=== PATIENT | female | born 1980 | race Caucasian/White ===

== ENCOUNTER 2024-09-09 16:38 | Emergency (ER) | payer BC ==
[~2024-09-09] VITALS: Ht 167.6 cm; Wt 122.7 kg
[2024-09-09 16:40] VITALS: TEMP 98.2
[2024-09-09 17:13] LABS: BASOPHILS # (AUTO) 0.1 X10'3 (0-0.2); BASOPHILS % (AUTO) 0.7 % (0-1); EOSINOPHILS # (AUTO) 0.2 X10'3 (0-0.9); EOSINOPHILS % (AUTO) 2.1 % (0-6); HEMOGLOBIN 13.5 g/dl (12.0-16.0); LYMPHOCYTES # (AUTO) 2.1 X10'3 (1.1-4.8); LYMPHOCYTES % (AUTO) 23.4 % (21-51); MEAN CORPUSCULAR HEMOGLOBIN 32.4 PG (27.0-31.0); MEAN CORPUSCULAR HGB CONC 32.8 g/dL (33.0-36.5); MEAN CORPUSCULAR VOLUME 98.8 FL (78-98); MEAN PLATELET VOLUME 8.8 FL (7.4-10.4); MONOCYTES # (AUTO) 0.6 X10'3 (0-0.9); MONOCYTES % (AUTO) 6.9 % (2-12); NEUTROPHILS # (AUTO) 6.1 X10'3 (1.8-7.7); NEUTROPHILS % (AUTO) 66.9 % (42-75); PLATELET COUNT 251 X10'3 (140-440); RED BLOOD COUNT 4.15 X10'6 (4.20-5.60); RED CELL DISTRIBUTION WIDTH 13.9 % (11.5-14.5); WHITE BLOOD COUNT 9.1 X10'3 (4.5-11.0)
[2024-09-09 17:35] LABS: ALANINE AMINOTRANSFERASE 38 U/L (12-78); ALBUMIN 2.9 G/DL (3.4-5.0); ALBUMIN/GLOBULIN RATIO 0.9 (1.1-1.5); ALKALINE PHOSPHATASE 62 IU/L (46-116); ANION GAP 7 (8-16); ASPARTATE AMINO TRANSFERASE 18 U/L (10-37); BILIRUBIN,TOTAL 0.2 MG/DL (0.1-1.0); BLOOD UREA NITROGEN 8 MG/DL (7-18); BUN/CREATININE RATIO 11.4 (10.0-20.0); CALCIUM 7.8 MG/DL (8.5-10.1); CHLORIDE 106 MMOL/L (99-107); GLUCOSE 102 MG/DL (70-104); LIPASE 33 U/L (16-77); POTASSIUM 3.8 MMOL/L (3.5-5.1); SODIUM 139 MMOL/L (135-145); TOTAL CARBON DIOXIDE 26.4 MMOL/L (24-32); TOTAL PROTEIN 6.3 G/DL (6.4-8.2); eCRCL 95 ML/MIN; eGFR 90 ML/MIN
[2024-09-09 19:51] LABS: BILIRUBIN,URINE SMALL (Neg); CLARITY,URINE CLOUDY (Clear); COLOR,URINE YELLOW (Yellow); GLUCOSE, URINE NEGATIVE (Neg); KETONES,URINE TRACE mg/dl (Neg); LEUKOCYTE ESTERASE ,URINE NEGATIVE (Neg); NITRITES, URINE NEGATIVE (Neg); OCCULT BLOOD,URINE LARGE (Neg); PROTEIN,URINE 100 mg/dl (Neg); UROBILINOGEN,URINE 0.2 E.U/dL (0.2-1.0)
[2024-09-09 19:52] LABS: URINE HCG NEGATIVE (NEG)
[2024-09-09 19:56] LABS: UA COLLECTION TYPE CLN CATCH MIDSTREAM
[2024-09-09 19:57] LABS: BACTERIA,URINE FEW /HPF (Neg); MUCUS STRANDS MODERATE /LPF (Neg); RBC,URINE TNTC /HPF (0-2); SQUAMOUS EPITHELIAL CELL,UR MANY /LPF (FEW); WBC,URINE 0-4 /HPF (0-4)
[2024-09-09] MEDS: ondansetron 4mg rapidly disintigrating tab PO ONE (20:04)
[2024-09-09] MEDS: HYDROcodone/acetaminophen 5mg/325mg tablet PO ONE (20:06)
[2024-09-09] MEDS: ketorolac trometh 15mg/ml vial 15 MG/ML ML IM ONE (20:08)
[2024-09-09] MEDS: metoclopramide 10mg tablet PO ONE (20:08)
[2024-09-09] MEDS ORDERED: ketorolac trometh 15mg/ml vial 15 MG/ML ML IM ONE (20:20)
[2024-09-09 20:21] LABS: URINE AMPHETAMINE SCREEN NEGATIVE (Neg); URINE BARBITUATE SCREEN NEGATIVE (Neg); URINE BENZODIAZEPINES SCREEN NEGATIVE (Neg); URINE CANNABINOID SCREEN POSITIVE (Neg); URINE COCAINE SCREEN POSITIVE (Neg); URINE METHADONE SCREEN NEGATIVE (Neg); URINE OPIATE SCREEN NEGATIVE (Neg); URINE PHENCYCLIDINE SCREEN NEGATIVE (Neg)
[2024-09-09] MEDS ORDERED: HYDR-3965 PO (20:58)
[2024-09-09] MEDS: hyDRALAzine 10mg tablet PO ONE (21:27)
[2024-09-09 21:29] VITALS: BP 189/109; PULSE 83; RESP 16; O2SAT 95
== END 2024-09-09 21:32 | disposition home or self-care (01) ==
LOC: ER 16:40
DX: N94.6 Dysmenorrhea, unspecified (principal); R10.84 Generalized abdominal pain; Z88.6 Allergy status to analgesic agent
CPT/HCPCS: 36415; 74176; 80053; 80305; 81001; 81025; 83690; 84145; 85025; 99284; J8597